=== PATIENT | female | born 1995 | race Caucasian/White ===

== ENCOUNTER 2022-04-19 09:43 | Outpatient (CLI) | payer BC, SELFPAY | END 2022-04-19 09:44 | disposition home or self-care (01) | LOC: AMB 13:15 | PROVIDERS: Visit Provider Internal Medicine | DX: E11.65 Type 2 diabetes mellitus with hyperglycemia (principal); R53.1 Weakness | CPT/HCPCS: A0425; A0427 ==

== ENCOUNTER 2022-04-19 10:09 | Emergency (ER) | payer BC, SELFPAY ==
--- NOTE | 2022-04-19 10:20 | ED.GENADULT ---
HPI - General Adult General Chief complaint: Diabetic Related Problem Stated complaint: diabetic issues Time Seen by Provider: 04/19/22 10:19 History of Present Illness HPI narrative: Pt is a 27 year old diabetic who has been diabetic since she was 11 who presents after developing nausea and weakness upon arrival at the [facility]. Pt was discharged 2 days ago from the hospital in [place] after an episode of DKA. Pt has not missed any of her insulin doses and has been feeling pretty well since discharge. Pt had a finger stick blood sugar of 94 upon arrival this morning but began feeling poorly with nausea on the drive to meet a new PCP at [facility]. Upon arrival, the pt had worsening nausea and had to lie down. Pt had a blood sugar at the scene of 300+ and 911 was called. Pt was transported to the [facility] by EMS. Upon arrival, pt still feels poorly with the above mentioned symptoms and has a blood pressure of approximately 190/110. Pt has no chest pain, shortness of breath, neurological symptoms, fever, dysuria, rash or cough. By her estimation, she has gone into DKA at least 6 times in her lifetime. Related Data Home Medications Medication Instructions Recorded Confirmed duloxetine 20 mg capsule,delayed mg PO 04/19/22 release insulin glargine 100 unit/mL (3 unit subcut 04/19/22 mL) subcutaneous pen (Lantus Solostar U-100 Insulin) lisinopril 40 mg tablet mg 04/19/22 losartan 100 mg tablet mg 04/19/22 magnesium oxide mg 04/19/22 metoclopramide HCl 10 mg tablet mg 04/19/22 ondansetron 4 mg disintegrating mg 04/19/22 tablet potassium chloride 20 mEq meq PO 04/19/22 tablet,extended release(part/cryst) prochlorperazine maleate 10 mg mg 04/19/22 tablet spironolactone 25 mg tablet mg 04/19/22 Allergies Allergy/AdvReac Type Severity Reaction Status Date / Time No Known Drug Allergies Allergy Verified 04/19/22 10:40 Review of Systems Status of ROS: Reports: 10 or more systems reviewed and unremarkable except as noted in History and below [facility] Medical History (Updated 04/19/22 @ 12:14 by Roshan Chavarria MD) Depression Hypertension Type 1 diabetes Exam Narrative: Exam Narrative: EXAM GENERAL: Patient appears comfortable. Underweight and frail. EYES: No scleral icterus. THYROID: no thyroid nodules or thyromegaly. LYMPH: No supraclavicular or cervical lymphadenopathy. SKIN: Visible skin seen during exam normal or with benign process only. EXT: No dependent lower extremity pedal edema. HEART: Regular rate and rhythm with no murmurs, rubs, or gallops. LUNGS: Clear to auscultation bilaterally with no crackles or wheezes. ABD: Soft, non tender, non distended. PSYCH: Good eye contact, speech is not pressured. Const: Vital Signs, click to edit/add: Vital Signs - 24 hr 04/19/22 10:34 Temperature 97.6 F Pulse Rate [Left P ulse Oximeter] 77 Respiratory Rate 16 Blood Pressure [Le ft Upper Arm] 196/120 H Pulse Oximetry 99 Oxygen Delivery Me thod Room Air Course Course Hospital Course: Pt seen and examined. IV hydration begun. Labs collected. Reevaluation(s) Reevaluation #1: Pt is not acidotic. She is actually alkalotic. Pt has a number of interesting findings on laboratory including the alkalosis, elevated hgb, low bicarb that make me concerned for her safety at home with her level of deydration. Discussed case with hospitalist who accepted pt as an admission. Time: 12:05 Vital Signs Vital signs: Initial Vital Signs Temperature 97.6 F 04/19/22 10:34 Temperature Source Temporal Artery Scan 04/19/22 10:34 Pulse Rate 77 04/19/22 10:34 Pulse Rhythm 04/19/22 10:34 Pulse Strength 3+ Normal 04/19/22 10:34 Respiratory Rate 16 04/19/22 10:34 Blood Pressure 196/120 H 04/19/22 10:34 Blood Pressure Mean 145 04/19/22 10:34 Blood Pressure Position Sitting 04/19/22 10:34 Pulse Oximetry 99 04/19/22 10:34 Oxygen Delivery Method 04/19/22 10:34 Vital Signs Temperature 97.6 F 04/19/22 10:34 Pulse Rate 77 04/19/22 10:34 Respiratory Rate 16 04/19/22 10:34 Blood Pressure 196/120 H 04/19/22 10:34 Pulse Oximetry 99 04/19/22 10:34 Oxygen Delivery Method 04/19/22 10:34 Temperature 97.6 F 04/19/22 10:34 Pulse Rate 77 04/19/22 10:34 Respiratory Rate 16 04/19/22 10:34 Blood Pressure 196/120 H 04/19/22 10:34 Pulse Oximetry 99 04/19/22 10:34 Oxygen Delivery Method 04/19/22 10:34 Medical Decision Making MDM Narrative Medical decision making narrative: Pt is a 27 year old Type 1 diabetic who recently was discharged from the hospital in [place] after an episode of DKA. Pt awoke this morning with a blood sugar of 90 but by the time she was at the [facility], her blood sugar was greater than 300 and she felt weak and had to lie down. Pt was brought in to the ED and found to actually be alkalotic with a low bicarb, elevated hgb, elevated glucose and signs of dehydration. I am concerned that if we let her go with limited hydration in the ED she will worsen. Lactate also elevated. Pt will be admitted for hydration and monitoring of blood sugar as well as blood pressure which is 196/120. Differential Diagnosis Differential Diagnosis: DKA, Hyperglycemia, Sepsis, Toxic Ingestion, Lab Data Labs: Lab Results 04/19/22 04/19/22 04/19/22 Range/Units 10:26 11:02 11:02 WBC 10.56 (4.50-11.00) K/uL RBC 5.85 H (4.00-5.20) m/uL Hgb 16.1 H (12.0-16.0) gm/dL Hct 46.7 (33.0-51.0) % MCV 80 (80-100) fL MCH 28 (26-34) pg MCHC 35 (32-36) gm/dL RDW Coeff of Angelica 13.0 (11.5-15.5) % Plt Count 394 (140-440) K/uL Neut % (Auto) 80.3 H (42.0-72.0) % Lymph % (Auto) 13.1 L (20-44) % [place]all % (Auto) 5.8 (0.0-11.0) % Eos % (Auto) 0.3 (0.0-7.0) % Baso % (Auto) 0.4 (0.0-3.0) % Neut # (Auto) 8.50 H (1.7-7.0) K/uL Lymph # (Auto) 1.40 (0.90-2.90) K/uL W[place]all # (Auto) 0.60 (0.00-0.90) K/UL Eos # (Auto) 0.03 (0.00-0.50) K/uL Baso # (Auto) 0.04 (0.00-0.30) K/uL VBG pH (7.32-7.43) VBG pCO2 (40-50) mmHG VBG pO2 (25-47) mmHG VBG HCO3 (21-28) mmol/L Sodium 137 (135-149) mmol/L Potassium 3.4 L (3.6-5.1) mmol/L Chloride 103 (96-114) mmol/L Carbon Dioxide 16 L (20-32) mmol/L BUN 17 (5-24) mg/dL Creatinine 0.7 (0.5-1.5) mg/dL Estimated Creat Clear 82.12 Estimated GFR 121 ml/min Glucose 275 H (60-115) mg/dL Lactate (0.5-1.9) mmol/L Calcium 9.4 (8.4-10.6) mg/dL Total Bilirubin 0.9 (0.1-1.5) mg/dL AST 34 (12-35) U/L ALT 27 (4-35) U/L Alkaline Phosphatase 107 (40-150) U/L Troponin I < 0.01 L (0.01-0.04) ng/mL Total Protein 8.3 (6.0-8.3) g/dL Albumin 4.9 (3.3-5.0) g/dL Amylase 83 (18-89) U/L Urine Color Light yellow (Yellow) Urine Appearance Cloudy A (Clear) Urine pH 7.0 (5.0-8.5) Ur Specific Ackley 1.020 (1.000-1.030) Urine Protein Negative (Negative) Urine Glucose (UA) 2+ A (Negative) Urine Ketones 2+ A (Negative) Urine Blood 3+ A (Negative) Urine Nitrite Negative (Negative) Urine Bilirubin Negative (Negative) Urine Urobilinogen 0.2 (0.2-1.0) Ur Leukocyte Esterase Negative (Negative) Urine RBC >100 A (0-2) Urine WBC 2-5 (0-5) Ur Squamous Epith Cells None (None-Few) Urine Bacteria None (None) 04/19/22 Range/Units 11:02 WBC (4.50-11.00) K/uL RBC (4.00-5.20) m/uL Hgb (12.0-16.0) gm/dL Hct (33.0-51.0) % MCV (80-100) fL MCH (26-34) pg MCHC (32-36) gm/dL RDW Coeff of Angelica (11.5-15.5) % Plt Count (140-440) K/uL Neut % (Auto) (42.0-72.0) % Lymph % (Auto) (20-44) % W[place]all % (Auto) (0.0-11.0) % Eos % (Auto) (0.0-7.0) % Baso % (Auto) (0.0-3.0) % Neut # (Auto) (1.7-7.0) K/uL Lymph # (Auto) (0.90-2.90) K/uL W[place]all # (Auto) (0.00-0.90) K/UL Eos # (Auto) (0.00-0.50) K/uL Baso # (Auto) (0.00-0.30) K/uL VBG pH 7.510 H (7.32-7.43) VBG pCO2 25 L (40-50) mmHG VBG pO2 31.3 (25-47) mmHG VBG HCO3 20 L (21-28) mmol/L Sodium (135-149) mmol/L Potassium (3.6-5.1) mmol/L Chloride (96-114) mmol/L Carbon Dioxide (20-32) mmol/L BUN (5-24) mg/dL Creatinine (0.5-1.5) mg/dL Estimated Creat Clear Estimated GFR ml/min Glucose (60-115) mg/dL Lactate 3.5 H (0.5-1.9) mmol/L Calcium (8.4-10.6) mg/dL Total Bilirubin (0.1-1.5) mg/dL AST (12-35) U/L ALT (4-35) U/L Alkaline Phosphatase (40-150) U/L Troponin I (0.01-0.04) ng/mL Total Protein (6.0-8.3) g/dL Albumin (3.3-5.0) g/dL Amylase (18-89) U/L Urine Color (Yellow) Urine Appearance (Clear) Urine pH (5.0-8.5) Ur Specific Ackley (1.000-1.030) Urine Protein (Negative) Urine Glucose (UA) (Negative) Urine Ketones (Negative) Urine Blood (Negative) Urine Nitrite (Negative) Urine Bilirubin (Negative) Urine Urobilinogen (0.2-1.0) Ur Leukocyte Esterase (Negative) Urine RBC (0-2) Urine WBC (0-5) Ur Squamous Epith Cells (None-Few) Urine Bacteria (None) Discharge Plan Discharge Clinical Impression: Acute dehydration Patient Disposition: Admitted As Inpatient Condition: Stable Activity Level: Other Discharge Diet: Other Prescriptions: No Action duloxetine 20 mg capsule,delayed release(DR/EC) PO Label Comments: TAKE 1 CAPSULE (20 MG) BY MOUTH ONCE DAILY. prochlorperazine maleate 10 mg tablet Label Comments: TAKE 1 TABLET (10 MG) BY MOUTH EVERY 6 HOURS IF NEEDED FOR NAUSEA/VOMITING. spironolactone 25 mg tablet Label Comments: TAKE 1 TABLET (25 MG) BY MOUTH ONCE DAILY. potassium chloride 20 mEq tablet,ER particles/crystals PO Label Comments: DISSOLVE 1 TABLET(20MEQ) IN LIQUID TAKE BY MOUTH ONCE DAILY WITH A MEAL lisinopril 40 mg tablet Label Comments: TAKE 1 TABLET (40 MG TOTAL) BY MOUTH DAILY. ondansetron 4 mg tablet,disintegrating Label Comments: PLACE 1-2 TABLETS ON THE TONGUE EVERY 8 HOURS NEEDED FOR NAUSEA/VOMITTING losartan 100 mg tablet Label Comments: TAKE 1 TABLET (100 MG) BY MOUTH ONCE DAILY. metoclopramide HCl 10 mg tablet Label Comments: TAKE ONE TABLET BY MOUTH EVERY SIX HOURS IF NEEDED FOR NAUSEA/VOMITING magnesium oxide 250 mg magnesium tablet insulin glargine [Lantus Solostar U-100 Insulin] 100 unit/mL (3 mL) insulin pen SUBCUT Label Comments: INJECT 20 UNITS UNDER THE SKIN EVERY MORNING.
[2022-04-19 10:34] VITALS: BP 196/120; PULSE 77; RESP 16; TEMP 36.4; O2SAT 99; BMI 16.8
[2022-04-19 10:51] LABS: Appearance Urine Cloudy (Clear); Bilirubin Urine Negative (Negative); Blood Urine 3+ (Negative); Color Urine Light yellow (Yellow); Glucose Urine 2+ (Negative); Ketones Urine 2+ (Negative); Leukocyte Esterase Urine Negative (Negative); Nitrite Urine Negative (Negative); Protein Urine Negative (Negative); Urobilinogen Urine 0.2 (0.2-1.0)
[2022-04-19 11:08] LABS: RBC Urine >100 (0-2)
[2022-04-19 11:10] LABS: HCO3 VBG 20 mmol/L (21-28); PCO2 VBG 25 mmHG (40-50); PO2 VBG 31.3 mmHG (25-47)
[2022-04-19] MEDS: ONDANSETRON 2 MG/ML inj 4 MG IVP (11:10)
[2022-04-19] MEDS: 0.9 % SODIUM CHLORIDE 500 ML 500 ML IV (11:10)
[2022-04-19 11:11] LABS: Lactate* 3.5 mmol/L (0.5-1.9)
[2022-04-19 11:13] LABS: Basophils Absolute Auto 0.04 K/uL (0.00-0.30); Basophils Percent Auto 0.4 % (0.0-3.0); Eosinophils Absolute Auto 0.03 K/uL (0.00-0.50); Eosinophils Percent Auto 0.3 % (0.0-7.0); Hematocrit 46.7 % (33.0-51.0); Hemoglobin* 16.1 gm/dL (12.0-16.0); Immature Granulocytes Abs Auto 0.01 K/uL (0.00-0.30); Immature Granulocytes Pct Auto 0.1 %; Lymphocytes Percent Auto 13.1 % (20-44); Mean Corpuscular HGB Conc 35 gm/dL (32-36); Mean Corpuscular Hemoglobin 28 pg (26-34); Mean Corpuscular Volume 80 fL (80-100); Monocytes Percent Auto 5.8 % (0.0-11.0); Neutrophils Percent Auto 80.3 % (42.0-72.0); Platelet Count* 394 K/uL (140-440); Red Blood Count 5.85 m/uL (4.00-5.20); White Blood Count* 10.56 K/uL (4.50-11.00)
[2022-04-19 11:15] LABS: Slide Review Reflex No
[2022-04-19 11:29] LABS: Chloride* 103 mmol/L (96-114)
[2022-04-19 11:30] LABS: Albumin* 4.9 g/dL (3.3-5.0); Potassium* 3.4 mmol/L (3.6-5.1); Sodium* 137 mmol/L (135-149)
[2022-04-19 11:32] LABS: Amylase* 83 U/L (18-89); Carbon Dioxide* 16 mmol/L (20-32)
[2022-04-19 11:33] LABS: Alanine Aminotransferase* 27 U/L (4-35); Alkaline Phosphatase* 107 U/L (40-150); Aspartate Amino Transferase* 34 U/L (12-35); Bilirubin Total* 0.9 mg/dL (0.1-1.5); Blood Urea Nitrogen* 17 mg/dL (5-24); Calcium* 9.4 mg/dL (8.4-10.6); Creatinine* 0.7 mg/dL (0.5-1.5); Est. Creatinine Clearance* 82.12; Estimated Glomerular Filt Rate 121 ml/min; Glucose* 275 mg/dL (60-115); Total Protein* 8.3 g/dL (6.0-8.3)
[2022-04-19 11:43] LABS: Troponin I* < 0.01 ng/mL (0.01-0.04)
[2022-04-19 12:23] LABS: PCR FLU A Negative PCR FLU A (Negative); PCR FLU B Negative PCR FLU B (Negative); PCR RSV Negative PCR RSV (Negative); SARS PCR* Negative SARS-CoV-2 (Negative)
[2022-04-19] MEDS: 0.9 % SODIUM CHLORIDE 1000 ml 1,000 ML 125 ML IV (12:29)
[2022-04-19 12:37] LABS: HCO3 VBG 18 mmol/L (21-28); Lactate* 3.1 mmol/L (0.5-1.9); PCO2 VBG 23 mmHG (40-50); PO2 VBG 45.4 mmHG (25-47); pH VBG 7.511 (7.32-7.43)
--- NOTE | 2022-04-19 12:47 | ED.NURSE ---
Pt mom arrived to room, requested RN. Poultry Farmworker came to bedside and mom asked that patient be transfered to [facility]. Asked Dr Chavarria to go speak with mom/patient. Deon returned from their conversation saying that the patient would be signing out AMA. Advised patient to seek immediate medical care for any worsening S/S by calling 911. Pt verbalized understanding and acknowledged.
[2022-04-19 12:57] LABS: Chloride* 104 mmol/L (96-114); Potassium* 3.3 mmol/L (3.6-5.1); Sodium* 136 mmol/L (135-149)
[2022-04-19 13:00] LABS: Blood Urea Nitrogen* 16 mg/dL (5-24); Calcium* 9.1 mg/dL (8.4-10.6); Carbon Dioxide* 15 mmol/L (20-32); Creatinine* 0.6 mg/dL (0.5-1.5); Est. Creatinine Clearance* 95.81; Estimated Glomerular Filt Rate 126 ml/min; Glucose* 294 mg/dL (60-115)
== END 2022-04-19 13:03 | disposition left against medical advice (07) ==
PROVIDERS: Emergency Provider Internal Medicine
DX: E86.0 Dehydration (principal); E10.69 Type 1 diabetes mellitus with other specified complication
CPT/HCPCS: 36415; 80048; 80053; 81003; 81015; 82150; 82803; 82962; 83605; 84484; 85025; 87502; 87634; 87635; 93005; 96374; 99283; 99284; J2405; J7030; J7120

== ENCOUNTER 2022-05-08 08:33 | Outpatient (CLI) | payer BC, SELFPAY ==
--- NOTE | 2022-05-08 08:45 | CRLHL7_ITS ---
For Patients: As a result of the Century Cures Act, medical imaging exams and procedure reports are released immediately into your electronic medical record. You may view this report before your referring provider. If you have questions, please contact your health care provider. Indication: Persistent hypertension, evaluate for renal artery stenosis. Technique: Routine renal artery duplex ultrasound examination, with 2D and spectral analysis, and color doppler imaging. Comparison: None available. Findings: The right kidney measures 9.4 x 3 x 4.9 cm without evidence of hydronephrosis, abnormal cortical echotexture, or cortical thinning. No obvious calcifications or masses. The left kidney measures 9.9 x 3.9 x 4.1 cm without evidence of hydronephrosis, abnormal cortical echotexture, or cortical thinning. No obvious calcifications or masses. Bilateral renal arteries are well-visualized. The velocity in the abdominal aorta was measured at 125 cm/second. The right renal artery was measured at 104 cm/sec, and the left renal artery was measured at 82 cm/sec. This results in the renal artery ratio 0.8 and 0.7, respectively. There are brisk systolic upstrokes with no tardus waveforms. Resistive indices in the upper, mid, and lower pole of the right and left kidney were acquired at 0.5, 0.5 and 0.6 for the right kidney and 0.6, 0.5 and 0.6 for the left kidney. Bilateral renal veins are patent on color and spectral analysis. Impression: 1. No sonographic evidence of a hemodynamically significant renal artery stenosis. 2. No evidence of hydronephrosis. Dictated by Axel Samuels MD @ 05/08/2022 9:35:07 PM (Electronically Signed)
== END 2022-05-08 08:34 | disposition home or self-care (01) ==
LOC: US 08:36
PROVIDERS: Visit Provider Student in an Organized Health Care Education/Training Program
DX: I10 Essential (primary) hypertension (principal)
CPT/HCPCS: 76775; 93975

== ENCOUNTER 2024-09-05 09:13 | Outpatient (CLI) | payer BC, SELFPAY ==
--- OUTSIDE RECORDS SUMMARY | 2024-09-07 16:52 | XMS_ITS | Encounter Summary ---
Author Organization [facility] Address [address] [place] [address] Care Team Providers Care Plater Hot Dip Name Role Phone David Corona M.D. Primary Care Provider Reason for Visit * Reason Onset Date Comments Quality 09/02/2024 D5 Encounter Details Date Type Department Care Team (Late st Contact Info) Description 09/02/2024 Clinical Communication Department of Family Medicine, [facility], in [place] [address] [place] [phone] Yolanda Mobley, R.N. Quality (D5) Social History Tobacco Use Types Packs/Day Years Used Date Smoking Tobacco: Former Cigarettes 0.3 15.2 S tarted: 06/23/2009 Smokeless Tobacco: Never Comments:Vapes Alcohol Use Standard Drinks/Week Comments Not Currently 6 (1 standard drink = 0.6 oz pur e alcohol) [facility] Utilities Answer Date Recorded In the past 12 months has e [employer], gas, oil, or water [employer] threatened to shut off services in your home? No 11/19/2023 Humiliation, Afraid, Rape, and Kick questionnair e Answer Date Recorded Within the last year, have y ou been afraid of your partner or ex-partner? No 04/30/2022 Within the last year, have y ou been humiliated or emotionally abused in other ways by your partner or ex-partner? No Within the last year, have y ou been kicked, hit, slapped, or otherwise physically hurt by your partner or ex-partner? No 04/30/2022 Within the last year, have y ou been raped or forced to have any kind of sexual activity by your partner or ex-partner? No 04/30/2022 Hunger Vital Sign Answer Date Recorded Within the past 12 months, y ou worried that your food would run out before you got the money to buy more. Never true 11/19/19 24 Within the past 12 months, t he food you bought just didn't last and you didn't have money to get more. Never true 11/19/2023 PRAPARE - Transportation Answer Date Re corded In the past 12 months, has l ack of transportation kept you from medical appointments or from getting medications? No 11/09 In the past 12 months, has l ack of transportation kept you from meetings, work, or from getting things needed for daily living? No 11/19/2023 Depression Answer Date Recor ded PHQ-9 Total Score (max 27) 2 11/20 Housing Stability Answer Date Recorded What is your living situation today? I have a [facility] place to live 11/19/2023 Education Answer Date Recorded What is the highest level of school you have completed or the highest degree you have received? 12th grade 11/28/2020 Comments Unknown Sex and Gender Information Value Date Recorded Sex Assigned at Female 07/04/2018 1:38 PM CDT Legal Sex Female 7:44 PM [employer] Gender Identity Nonbinary or Genderqueer 022 10:00 PM CDT Sexual Orientation Something else 04/17/2022 1: 14 PM [employer] TE[employer] documented as of this encounter Miscellaneous Notes * Telephone Encounter - Yolanda Mobley R.N. - 09/02/2024 1:00 PM CDT Left message for patient to return call to clinic. Does the patient need to speak to nursing? no Action needed: Help patient schedule - patient is due for diabetic lab work and appointment. documented in this encounter Plan of Treatment Not on file documented as of this encounter Visit Diagnoses Not on filedocumented in this encounter Additional Health Concerns Assessment Noted Time PHQ-9 Depression Total Score: 2 11/21/19 24 10:44 AM CDT documented as of this encounter Care Teams Plater Hot Dip Relationship Specialty Start Date End Date David Corona M.D. [address] [place] [phone] PCP - General Family Medicine 04/26/22 documented as of this encounter
--- OUTSIDE RECORDS SUMMARY | 2024-09-07 16:52 | XMS_ITS | Clinical Summary ---
Author Organization [facility] Address [address] [place] [address] Care Team Providers Care Baker Pie Name Role Phone Pcp, Pt Declines Primary Care Provider [phone] Source Comments You are receiving this document as you are listed as the primary care provider,follow-up provider, or the patient has been referred to you for consultation.This is in compliance with the Medicare and[facility]centive [facility],which states Providers who transition their patient to another setting of careor provider of care or refers their patient to another provider of care shouldprovide summary care record for each transition of care or referral. [facility] Allergies No known active allergies Medications * This document contains information received from the source organization and may not represent a complete record from that organization. cloNIDine (CATAPRES) 0.2 MG tablet Take 1 Tablet (0.2 mg) by mouth. 11/14/19 24 Active ACCU-CHEK SOFTCLIX lancets 4 times a day. 11/16/19 24 Active amLODIPine (NORVASC) 10 MG tablet Take 1 Tablet (10 mg) by mouth daily. Active Dexcom G7 Sensor continuous blood glucose deviceIndications :Type 1 diabetes mellitus with hyperglycemia (HRC) Change every 10 days 3 Each 6 01/13/20 24 Active insulin pen needle (BD PEN NEEDLE MARLEN U/F) 32G X 4 MMIndications:Typ e 1 diabetes mellitus with hyperglycemia (HRC) Inject 1 Each subcutaneously six times a day. with pen injector device. Each needle is for one time use only 400 Each 01/13/20 Active blood glucose (ACCU-CHEK GUIDE) test stripIndications: Type 1 diabetes mellitus with hyperglycemia (HRC) Use 1 Each to test three times a day. Use as directed. 200 Strip 5 01/13/20 Active acetone urine (KETOSTIX) test stripIndications: Type 1 diabetes mellitus with hyperglycemia (HRC) Use 1 Each to test as needed. Test urine if BG >240 or ill 50 Each 1 01/13/20 24 025 Active LANTUS SOLOSTAR 100 UNIT/ML pen Inject 23 Units subcutaneously daily. 01/14/20 Active cholecalciferol 25 MCG TABS Take 2 Tablets (2,000 Units) by mouth daily. 01/15/20 Active docusate sodium 100 MG Take 1 Capsule (100 mg) by mouth two times a day. 01/14/20 Active glucose 4 gram chewable tablet Chew and swallow 4 Tablets (16 g) by mouth as needed. 01/14/20 Active insulin lispro (HUMALOG; ADMELOG) 100 UNIT/ML injection vial Inject subcutaneously with meals and snacks. 01/14/20 Active insulin lispro (HUMALOG; ADMELOG) 100 UNIT/ML injection vial Inject 1-5 Units subcutaneously three times a day with meals AND 1-4 Units daily at bedtime. 01/14/20 Active losartan-hydrochl orothiazide (HYZAAR) 50-12.5 MG tablet Take 2 Tablets by mouth daily. 60 Tablet 01/15/20 025 Active melatonin 3 MG tablet Take 1 Tablet (3 mg) by mouth daily at bedtime. 01/14/20 Active multivitamin (THERAGRAN) tablet Take 1 Tablet by mouth daily. 01/15/20 Active simethicone (MYLICON) 125 MG chewable tablet Chew and swallow 1 Tablet (125 mg) by mouth 4 times daily as needed. 01/14/20 Active Active Problems Problem Noted Date Diagnosed Date LBBB (left bundle branch block) 12/27/2023 Substance abuse 12/27/2023 Overview (12/27/2023): marijuana Avoidant or restrictive food intake disorder 11/2023 Type 1 diabetes mellitus with hyperglycemia 11/2023 Primary hypertension 11/18/2023 Current moderate episode of major depressive disorder without prior episode 11/18/2023 Prolonged Q-T interval on ECG 11/18/2023 Resolved Problems Problem Noted Date Diagnosed Date Resolved Date Protein-calorie malnutrition, moderate 11/18/2023 12/24/2023 Immunizations Immunization Administration Dates Next Due Influenza IIV4 (Quadrivalent) 0.5mL (82567) 08/2022,03/24/2019 Karl COVID-19 Vaccine 08/23/2020 Pfizer Bivalent 12+ 05/08/2022 Pfizer Monovalent 12+ 06/06/2021 Pfizer Monovalent 12+ Purple Top 03/14/2021 Social History Tobacco Use Types Packs/Day Years Used Date Smoking Tobacco: Never Passive Smoke Exposure: Never Smokeless Tobacco: Never Tobacco Cessation:Counseling Given: Not Answered Alcohol Use Standard Drinks/Week Comments Never 0 (1 standard drink = 0.6 oz pur e alcohol) [facility] Se[employer]less Receiptsities Answer Date Recorded In the past 12 months has e [employer], [employer], oil, or water [employer] threatened to shut off services in your home? No 12/11/2023 Humiliation, Afraid, Rape, and Kick questionnair e Answer Date Recorded Within the last year, have y ou been afraid of your partner or ex-partner? No 12/11/2023 Within the last year, have y ou been humiliated or emotionally abused in other ways by your partner or ex-partner? No Within the last year, have y ou been kicked, hit, slapped, or otherwise physically hurt by your partner or ex-partner? No 12/11/2023 Within the last year, have y ou been raped or forced to have any kind of sexual activity by your partner or ex-partner? No 12/11/2023 Hunger Vital Sign Answer Date Recorded Within the past 12 months, y ou worried that your food would run out before you got the money to buy more. Never true 12/11/19 24 Ran Out of Food in the Last Year Not on file 12/11/2023 PRAPARE - Transportation Answer Date Re corded In the past 12 months, has l ack of transportation kept you from medical appointments or from getting medications? No 04/2023 In the past 12 months, has l ack of transportation kept you from meetings, work, or from getting things needed for daily living? No 12/11/2023 Housing Stability Vital Sign Answer Des e Recorded In the last 12 months, was t here a time when you were not able to pay the mortgage or rent on time? No 12/11/2023 In the past 12 months, how m any times have you moved where you were living? 0 12/11/2023 At any time in the past 12 m [facility], were you homeless or living in a custodial (including now)? 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 Temperature 36.7 C (98.1 F) 01/14/2024 6:00 AM WORK[employer] ANALYST Respiratory Rate - - Oxygen Saturation - - Inhaled Oxygen Concentration - - Weight 51.5 kg (113 lb 8.6 oz) 01/14/2024 6:00 A M [employer] Height 160 cm (5' 2.99) 12/26/2023 5:55 AM CDT Body Mass Index 20.12 12/26/2023 5:55 AM CDT Plan of Treatment Health Maintenance Due Date Last Done Comments Cervical Cancer Screening Due 1995 Diabetes: Eye Exam 1995 Diabetes: Foot Exam 1995 Diabetes: Lipid Panel 1995 Diabetes: Urine Microalbumin 1995 Hep C Screening (Preventive Services) 1995 MTM Targeted 1995 HIV Screening (Preventive Services) 2011 Adult Preventive Visit 2013 HepB Vaccine (1) 2014 Diabetes: HGBA1C 02/20/2024 11/21/2023, 02/2024, 09/11/2023, Additional history exists Diabetes: Creatinine 01/07/2025 01/08/2024, 12/31/2023, 12/24/2023, Additional history exists DTaP/Tdap/Td Vaccine (6 - Tdap) 03/24/2030 03/24/2020, 11/26/2005, 01/12/2000, Additional history exists Zoster/Shingles Vaccine (1 of 2) 2045 Hib Vaccine Completed 02/04/1996, 10/1995, 1995, Additional history exists IPV (Polio) Vaccine Completed 01/12/2000, 1995, 1995, Additional history exists Chlamydia Discontinued 09/26/2012 Pneumococcal Vaccine Completed 05/08/2022, 03/24/19 21 COVID-19 Vaccine Completed 11/21/2023, , 06/06/2021, Additional history exists Influenza Vaccine Completed 11/21/2023, , 03/24/2020, Additional history exists HPV Vaccine Aged Out No longer eligi ble based on patient's age to complete this topic HepA Vaccine Aged Out No longer eligi ble based on patient's age to complete this topic MCV4 Vaccine Aged Out No longer eligi ble based on patient's age to complete this topic Meningococcal B Vaccine Aged Out No l onger eligible based on patient's age to complete this topic Procedures Procedure Name Priority Date/Time Associated Diagnosis Comments COMPREHENSIVE METABOLIC PANEL Routine 01/08/2024 5:34 AM CDT Avoidant or restrictive food intake disorder from Last 3 Months or Most Recently Relevant to Health Maintenance Results * (ABNORMAL) Comp Metabolic Panel (01/08/2024 5:34 AM CDT) Sodium 138 136 - 145 mmol/L 01/08/2024 6:31 AM CDT [facility] Potassium 4.0 3.5 - 5.1 mmol/L 01/08/2024 6:31 AM CDT [facility] Comment:Specimen slightly he molyzed. Hemolysis may affect result. Chloride 106 98 - 109 mmol/L 01/08/2024 6:31 AM CDT [facility] CO2 24 20 - 29 mmol/L 01/08/2024 6:31 AM CDT [facility] Anion Gap 8 6 - 16 mmol/L 01/08/2024 6:31 AM CDT [facility] Calcium 9.1 8.4 - 10.4 mg/dL 01/08/2024 6:31 AM CDT [facility] BUN 29(H) 7 - 26 mg/dL 01/08/2024 6:31 AM CDT [facility] Creatinine 0.69 0.55 - 1.18 mg/dL 01/08/2024 6:31 AM CDT [facility] Alkaline Phosphatase 102 40 - 150 U/L 01/08/2024 6:31 AM CDT [facility] AST (SGOT) 20 10 - 40 U/L 01/08/2024 6:31 AM CDT [facility] ALT (SGPT) 22 <=55 U/L 01/08/2024 6:31 AM CDT [facility] Bilirubin, Total 0.3 0.2 - 1.2 mg/dL 01/08/2024 6:31 AM CDT [facility] Protein, Total 7.4 6.4 - 8.3 g/dL 01/08/2024 6:31 AM CDT [facility] Albumin 3.7 3.5 - 5.0 g/dL 01/08/2024 6:31 AM CDT [facility] Glucose 210(H) 70 - 100 mg/dL 01/08/2024 6:31 AM CDT [facility] Comment:The given reference range is for the fasting state. Non-fasting reference range for glucose is 70 - 180 mg/dL. GFR, Estimated 01/08/2024 6:31 AM CDT [facility] Comment:Since GFR estimation s are influenced by muscle mass, sex and age, in certain instances, two GFR estimations are provided to assist with clinical interpretation. GFR, Female Estimated >60 >60 mL/min/1.7 3m2 01/08/2024 6:31 AM CDT [facility] GFR, Male Estimated >60 >60 mL/min/1.7 3m2 01/08/2024 6:31 AM CDT [facility] Hours Fasting 0.1 8 - 12 Hours 01/08/2024 6:31 AM CDT [facility] Comment:Lab unable to obtain patient's fasting status at time of specimen collection. Blood Venipuncture / Unknown 01/08/2024 5:34 AM CDT 01/08/2024 6:00 AM CDT Narrative [facility] - 01/08/2024 6:31 AM CDT [place] reference intervals have been applied. Please see the Lab Test Catalog for sex-specific reference intervals. us Enma Bowling DO LAB_1 Final Result [facility] [address] [place] [address], [facility] from Last 3 Months or Most Recently Relevant to Health Maintenance [facility] * Full Code (Latest Code Status on File) Date Activated Date Inactivated Comments 12/25/2023 3:29 PM 01/14/2024 4:21 PM * Full Code Date Activated Date Inactivated Comments 12/11/2023 2:55 PM 12/25/2023 1:16 PM Care Teams Baker Pie Relationship Specialty Start Date End Date Pcp, Pt [place] [address] PCP - General 11/14/23
--- OUTSIDE RECORDS SUMMARY | 2024-09-07 16:52 | XMS_ITS | Clinical Summary ---
Author Organization [facility] Address [address] [place] [address] Care Team Providers Care Relationship Associate Name Role Phone David Corona M.D. Primary Care Provider Source Comments Patient records contain information from all sites at [facility]. For routine questions regarding patient records, call [phone] during business hours, M-F 8:00 AM - 5:00 PM Central Time. Record requests for emergency care only can be directed to [phone] at any time.[facility] Allergies No known active allergies Medications * This document contains information received from the source organization and may not represent a complete record from that organization. blood-glucose meter misc Test as directed for diabetes control. 1 each 04/20/19 23 Active blood glucose ctl high,nml,low solution Glucose control solution provides an easy way to ensure accurate blood glucose testing. 1 each 04/20/19 23 Active amLODIPine (NORVASC) 10 mg tablet Take 1 tablet (10 mg total) by mouth daily. 90 tablet 3 05/08/19 23 Active glucagon 1 mg injectionIndicati ons:Diabetes Mellitus Type 1 Hyperglycemia (HCC) Use as directed for low blood sugar. 1 each 06/06/19 23 Active blood sugar diagnostic stripsIndications :Diabetes Mellitus Type 1 Hyperglycemia (HCC) 4 test daily. 400 test 3 09/12/19 24 025 Active hydrOXYzine (VistariL) 25 mg capsule Take 25 mg by mouth 3 (three) times a day. 09/13/19 24 Active Accu-Chek Softclix Lancets lancets 4 (four) times a day. 11/16/19 Active losartan (Cozaar) 50 mg tablet Take 1 tablet (50 mg total) by mouth daily. Taking 50 mg once daily 11/21/19 Active cloNIDine (Catapres) 0.2 mg tablet Take 1 tablet (0.2 mg total) by mouth once for 1 dose. 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 30 mL 02/26/20 025 Active insulin aspart U-100 (NovoLOG FlexPen) 100 unit/mL (3 mL) penIndications:Di abetes Mellitus Type 1 Hyperglycemia (HCC),Shelter Use Of Insulin Active (HCC),Diabetes Mellitus Type 1 With Ketoacidosis Without Coma (HCC) Inject 5-8 Units under the skin 3 (three) times a day with meals. B: 1u/10g; snacks:1u/20g; L/S:1u/15g. PLUS CF 1 unit/60 mg/dL starting at 160 mg/dL. MAX TDD: 40 units. 30 mL 02/26/20 025 Active pen needle, diabetic (BD Ultra-Fine Mini Pen Needle) 31 gauge x 3/16 needleIndications :Diabetes Mellitus Type 1 Hyperglycemia (HCC) 5 each (5 Injection total) by abdominal subcutaneous route daily. 500 each 02/26/20 24 025 Active insulin pump cart,auto,BT,G6/7 (Omnipod 5 G6-G7 Pods, Gen 5,) cartridge Inject 1 each under the skin every third day. 30 each 3 03/23/19 25 Active insulin aspart U-100 (NovoLOG U-100 Insulin aspart) 100 unit/mL vial For insulin pump usage up to 70 units daily. 100 mL 11 03/23/19 25 Active Active Problems Problem Noted Date Diagnosed Date Hypertensive Chronic Kidney Disease With Stage 1 Through Stage 4 Chronic Kidney Disease, Or Unspecified Chronic Kidney Disease 11/21/2023 Avoidant Restrictive Food Intake Disorder Adult 04/21/2022 Other Secondary Hypertension 04/21/2022 Malnutrition Moderate Protein-Calorie 04/19/2022 Shelter Use Of Insulin Active 08/24/2021 Underweight 08/24/2021 Depression Major Recurrent Moderate 08/08/2021 Anxiety Generalized Disorder 08/08/2021 Malnutrition Severe Protein-Calorie 08/03/2021 Acidosis Unspecified 08/02/2021 Diabetes Mellitus Type 1 Hyperglycemia 2 Proteinuria 03/26/2021 Acidosis Unspecified 02/20/2021 Hypophosphatemia 11/25/2020 Prolonged QT Interval 11/25/2020 Cannabis Mild Use Disorder (Abuse) Uncomplicated 11/25/2020 Microalbuminuria 03/24/2020 Overview (03/24/2020): March 24, 2020 Albumin/creatinine 29 Alcohol Mild Use Disorder (Abuse) In Remission 0 05/10/2019 Patient's Other Noncomplianc e With Medication Regimen Due To Financial Hardship 05/10/2019 Resolved Problems Problem Noted Date Diagnosed Date Resolved Date Ketoacidosis 04/20/2022 04/21/2022 Tachycardia Sinus 11/25/2020 11/25/2020 Failure Renal Acute (Acute Kidney Injury) 11/25/2020 11/25/2020 Encephalopathy Toxic Metabolic 11/25/2020 11/25/2020 Nausea And Vomiting 11/25/2020 11/26/19 21 Diabetes Mellitus Type 1 Wit h Ketoacidosis Without Coma 11/24/2020 04/21/2022 Neutrophilia 11/24/2020 11/25/2020 Hypertensive Urgency 12/07/2013 023 Encounters Date Type Department Care Team Description 09/02/2024 Clinical Communication Department of Family Medicine, [facility], in [place] [address] [place] [address] Yolanda Mobley R.N. Quality (D5) from Last 3 Months Immunizations Immunization Administration Dates Next Due DTP / Hib 1995,1995 DTaP (Infanrix, Tripedia) 01/12/2000 HepB, Unspecified 1995,1995,02/19/19 95 Hib (PRP-T) (ACTHIB, HIBERIX) 02/04/1996, 996 IPV 01/12/2000 Influenza, Seasonal, Injectable 02/10/2008,01/07 Influenza, Unspecified 03/24/2019,01/28/2014 MMR 01/12/2000,01/30/1996 PCV20 05/08/2022 PPSV23 03/24/2020 Polio, Unspecified 1995,1995, 996 SARS-COV-2 (COVID-19) - MODE RNA (12 YEARS AND OLDER) Fall Seasonal 11/21/2023 SARS-COV-2 (COVID-19) - PFIZ ER (Discontinued)(12 years or older) 03/14/2021 SARS-COV-2 (COVID-19) - PFIZ ER BIVALENT TS(Discontinued)(12 YEARS OR OLDER) 05/08/2022 SARS-COV-2 (COVID-19) - PFIZ ER TS(Discontinued)(12 years or older) 06/06/2021 Td Preservative Free (TENIVAC, DECAVAC) 03/24/19 21 Tdap 11/26/2005 influenza trivalent vaccine (6 months and older)(PF) 11/21/2023 influenza vaccine quad (FLUZ ONE/FLUARIX) (6 months and older)(PF) 04/16/2022,03/24/2020,03/24/2019 Family History Medical History Relation Name Comments Diabetes type I Brother Ronnell Diabetes type I Sister Taniya Relation Name Status Comments Brother Ronnell Alive Father Alive Mother Alive Sister Taniya Alive Social History Tobacco Use Types Packs/Day Years Used Date Smoking Tobacco: Former Cigarettes 0.3 15.2 S tarted: 06/23/2009 Smokeless Tobacco: Never Tobacco Cessation:Counseling Given: Not Answered Comments:Vapes Alcohol Use Standard Drinks/Week Comments Not Currently 6 (1 standard drink = 0.6 oz pur e alcohol) [facility] Utilities Answer Date Recorded In the past 12 months has th e [employer] oil, or water [employer] threatened to shut off services in your [...] money to buy more. Never true 11/19/19 Within the past 12 months, t he [...] your living situation today? I have a [facility] place to live 11/19/2023 Education Answer Date Recorded What is the highest level of school you have completed or the highest degree you have received? 12th grade 11/28/2020 Comments Unknown Sex and Gender Information Value Date Recorded Sex Assigned at Female 07/04/2018 1:38 PM CDT Legal Sex Female 7:44 PM ANIMATION PRODUCER Gender Identity Nonbinary or Genderqueer 022 10:00 PM CDT Sexual Orientation Something else 04/17/2022 1: 14 PM ANIMATION PRODUCER Last Filed Vital Signs Vital Sign Reading Time Taken Comments Blood Pressure 122/70 02/26/2024 10:17 AM ANIMATION PRODUCER Pulse 84 02/26/2024 10:17 AM ANIMATION PRODUCER Temperature 35.9 C (96.7 F) 11/21/2023 10:41 AM CDT Respiratory Rate 16 11/21/2023 10:4 1 AM CDT Oxygen Saturation 99% 04/22/2022 11: 43 AM ANIMATION PRODUCER Inhaled Oxygen Concentration - - Weight 51.6 kg (113 lb 12.1 oz) 024 10:17 AM ANIMATION PRODUCER Height 161.5 cm (5' 3.58) 11/21/2023 1 0:41 AM CDT Body Mass Index 19.78 11/21/2023 10:41 AM CDT Plan of Treatment Health Maintenance Due Date Last Done Comments HIV Screening 1995 Hepatitis C Screening 1995 Hepatitis A Vaccines (1 of 2 - Risk 2-dose series) 2014 Diabetic Office Visit with Foot Exam 05/08/2023 05/08/2022, 03/31/2020, 03/31/2020, Additional history exists Tobacco Cessation counseling 05/17/2023 05/16/2022 Urine Albumin 10/03/2023 10/02/2022, 06/0 09/2021, 03/24/2020, Additional history exists Dilated Eye Exam 10/16/2023 10/15/2022, 01/28/2014 Hemoglobin A1C 02/20/2024 11/21/2023, 07/0 05/2023, 02/02/2023, Additional history exists Depression Monitoring (PHQ-9 for quality tracking) 03/11/2024 Depression Monitoring (PHQ-9) 03/22/2024 11/21/2023 Creatinine Level (Kidney Function Test) 11/09/2024 11/10/2023, 11/09/2023, 11/08/2023, Additional history exists Sodium Level 11/09/2024 11/10/2023, 10/11, 11/08/2023, Additional history exists Potassium Level 11/13/2024 11/14/2023, 0906/2023, 11/12/2023, Additional history exists Lipid (Cholesterol) Screening 11/20/2024 11/21/2023, 11/12/2023, 10/02/2022, Additional history exists Visit: Chronic Disease, age 18+ 11/20/2024 11/21/2023, 11/21/2023 Office Visit for Blood Pressure Check / Re-check 02/25/2025 02/26/2024 Cervical/Vaginal Cancer Screening 11/20/2026 11/21/2023 DTaP,Tdap,and Td Vaccines (6 - Td or Tdap) 03/24/2030 03/24/2020, 11/26/2005, 01/12/2000, Additional history exists Hepatitis B Vaccines Completed 1995, 1995, 1995 IPV Vaccines Completed 01/12/2000, 10/1995, 1995, Additional history exists Chlamydia and Gonorrhea Screening Discontinued 01/28/2014 Pneumococcal vaccine (0-49 years) Completed 05/08/2022, 03/24/2020 COVID-19 Vaccine Completed 11/21/2023, , 06/06/2021, Additional history exists Influenza Vaccine Completed 11/21/2023, , 03/24/2020, Additional history exists HPV Vaccines Aged Out No longer eligi ble based on patient's age to complete this topic Procedures Procedure Name Priority Date/Time Associated Diagnosis Comments HEMOGLOBIN A1C, B Routine 11/21/2023 12: 05 PM CDT Diabetes Mellitus Type 1 (HCC) LIPID PANEL, S Routine 11/21/2023 12:05 PM CDT Diabetes Mellitus Type 1 Hyperglycemia (HCC) THINPREP SCREEN HPV REFLEX Routine 11/21/2023 11:12 AM CDT Well Adult Examination Normal ALBUMIN, RANDOM, U Routine 10/02/2022 11 :22 AM CDT Diabetes Mellitus Type 1 (HCC) BASIC METABOLIC PANEL, S/P Routine 04/22/2022 7:03 AM ANIMATION PRODUCER C TRACH AMP RNA Routine 01/28/2014 10:30 AM ANIMATION PRODUCER from Last 3 Months or Most Recently Relevant to Health Maintenance Results * Lipid Panel (11/21/2023 12:05 PM CDT) Triglycerides 51 mg/dL 11/21/2023 6:04 PM CDT OWAT Comment: ----REFERENCE VALUE---- Normal: <150 mg/dL Borderline High: 150-199 mg/dL High: 200-499 mg/dL Very High: > or =500 mg/dL Cholesterol, Total 165 mg/dL 2023 6:04 PM CDT OWAT Comment: ----REFERENCE VALUE---- Desirable: < 200 mg/dL Borderline High: 200 - 239 mg/dL High: > or = 240 mg/dL Cholesterol, LDL, Calculated 88 mg/dL 11/21/2023 6:04 PM CDT OWAT Comment: ----REFERENCE VALUE---- Desirable: <100 mg/dL Above Desirable: 100-129 mg/dL Borderline High: 130-159 mg/dL High: 160-189 mg/dL Very High: >=190 mg/dL ----ADDITIONAL INFORMATION---- LDL cholesterol calculated using the Nielson/NIH equation. Cholesterol, HDL 66 >=50 mg/dL 11/21/19 6:04 PM CDT OWAT Cholesterol, Non-HDL, Calculated 99 mg/dL 11/21/2023 6:04 PM CDT OWAT Comment: ----REFERENCE VALUE---- Desirable: <130 mg/dL Above Desirable: 130-159 mg/dL Borderline High: 160-189 mg/dL High: 190-219 mg/dL Very High: > or =220 mg/dL Fasting (8 HR or more) No 11/21/2023 12:05 PM CDT OWAT Blood (Blood, Venous) 11/21/2023 12:05 PM CDT 11/21/2023 5:33 PM CDT us David Corona M.D. LAB BLOOD ADD-ON Final Resul t [facility] [address] [place] [address], [facility] [place] [address] [place] [address] * (ABNORMAL) Hemoglobin A1c (11/21/2023 12:05 PM CDT) Hemoglobin A1c, B 11.6(H) 4.2 - 5.6 % 11/21/2023 2:22 PM CDT OWAT Comment: Hemoglobin A1c values greater than or equal to 6.5 percent are diagnostic for diabetes mellitus. Diagnosis should be confirmed by repeat testing. In diabetic patients, HbA1c goals should be discussed with healthcare provider. Blood (Blood, Venous) 11/21/2023 12:05 PM CDT 11/21/2023 1:02 PM CDT us David Corona M.D. LAB BLOOD ADD-ON Final Resul t [facility] [address] [place] [address], [facility] OWAT [facility] [place] [address] [place] [address] * ThinPrep Screen HPV Reflex (11/21/2023 11:12 AM CDT) 11/26/2023 11:12 AM CDT [facility] Report electronically signed by CAT Rob(ASCP) I verify that I have examined all relevant slides/materials for the specimen(s) and rendered or confirmed the diagnosis. 11/26/2023 11:12 AM CDT [facility] Gross Description Received specimen in a ThinPrep vial. 11/26/2023 11:12 AM CDT [facility] Pap Test Source Cervical/Endocervi arnold 11/26/2023 11:12 AM CDT [facility] Hormone Therapy/Contracep tives None/Not known 11/26/2023 11:12 AM CDT [facility] Interpretation Cervical/Endocervi arnold (ThinPrep): Satisfactory for Evaluation Endocervical/trans formation zone components absent Negative for Intraepithelial Lesion or Malignancy 11/26/2023 11:12 AM CDT [facility] Thin Prep Vial (Cervix/Endocerv ix) 11/21/2023 11:12 AM CDT 11/22/2023 7:17 AM CDT us David Corona M.D. LAB PAP PATHDX ORDERABLES Fi nal Result Performing Organization Address [facility] Co de Phone Number [facility] [address] [place] [address], [place] [facility] [address] [facility] [address] [place] [phone] * (ABNORMAL) Albumin, Random, Urine (10/02/2022 11:22 AM CDT) Microalbumin 87.0 mg/L 10/02/2022 2:35 PM CDT OWAT Creatinine 139 mg/dL 10/02/2022 2:35 PM CDT OW[facility] Albumin/Creatinin e Ratio 63(H) <25 mg/g 10/02/2022 2:35 PM CDT OW[facility] Urine (Urine, Midstream) 10/02/2022 11:22 AM CDT 10/02/2022 1:47 PM CDT us David Corona M.D. LAB URINE ORDERABLES Final R esult Performing Organization Address [facility] Co de Phone Number [facility] [address] [place] [address], [place] [facility] [place] [address] [place] [address] * (ABNORMAL) Basic Metabolic Panel (04/22/2022 7:03 AM ANIMATION PRODUCER) Potassium, S 4.6 3.6 - 5.2 mmol/L 04/22/2022 8:11 AM ANIMATION PRODUCER DTL Sodium, S 137 135 - 145 mmol/L 04/22/2022 8:11 AM ANIMATION PRODUCER DTL Chloride, S 102 98 - 107 mmol/L 04/22/2022 8:11 AM ANIMATION PRODUCER DTL Bicarbonate, S 26 22 - 29 mmol/L 04/22/2022 8:11 AM ANIMATION PRODUCER DTL Anion Gap 9 7 - 15 04/22/2022 8:11 AM ANIMATION PRODUCER DTL BUN (Blood Urea Nitrogen), S 13 6 - 21 mg/dL 04/22/2022 8:11 AM ANIMATION PRODUCER DTL Creatinine 0.70 0.59 - 1.04 mg/dL 04/22/2022 8:11 AM ANIMATION PRODUCER DTL Estimated GFR (eGFR) >90 >=60 mL/min/BSA 04/22/2022 8:11 AM ANIMATION PRODUCER DTL Comment: Estimated GFR calculated using the 2020 CKD_EPI creatinine equation. Calcium, Total, S 8.8 8.6 - 10.0 mg/dL 04/22/2022 8:11 AM ANIMATION PRODUCER DTL Glucose, S 308(H) 70 - 140 mg/dL 04/22/2022 8:11 AM ANIMATION PRODUCER DTL Blood (Blood, Venous) 04/22/2022 7:03 AM ANIMATION PRODUCER 04/22/2022 7:44 AM ANIMATION PRODUCER Amanda Dolan M.D. LAB BLOOD ADD-ON Final Result [facility] [address] [place] [address], [facility] [address] [place] [address] * HX-C trach Amp RNA (01/28/2014 10:30 AM ANIMATION PRODUCER) Chlamydia trachomatis amplified RNA Negative POWERCHART 01/28/2014 10:3 0 AM ANIMATION PRODUCER Aura Mohr M.D. LAB HISTORICAL OR DERS Final Result POWERCHART from Last 3 Months or Most Recently Relevant to Health Maintenance Insurance [facility] [place] [address] Advance Directives For more information, please contact: [phone] * Full Code (Latest Code Status on File) Date Activated Date Inactivated Comments 04/19/2022 8:01 PM 04/22/2022 2:29 PM Question Answer Comments Full Code: Discussed * Full Code Date Activated Date Inactivated Comments 11/24/2020 5:42 AM 11/26/2020 3:52 PM Question Answer Comments Full Code: Discussed Care Teams Relationship Associate Relationship Specialty Start Date End Date David Corona M.D. [address] [place] [address] [place] [address] PCP - General Family Medicine 04/26/22
--- OUTSIDE RECORDS SUMMARY | 2024-09-07 16:52 | XMS_ITS | Patient Health Record ---
Author Organization [facility] Address [facility] [address] Care Team Providers Care Detailer Name Role Phone Cirilo Wade MD Primary Care Provider Graciela vailable Reason For Referral No Information Plan Of Treatment No Information Insurance Providers Payer Name Payer Address Payer Phone Subscriber Number Group Number Insured Name Patient Relationship to Insured Coverage Start Date Coverage End Date [facility] [address] [address] [place] [address] [id number] Jef Silva Natural Child - Insured has Financial Responsibility 1
--- OUTSIDE RECORDS SUMMARY | 2024-09-07 16:52 | XMS_ITS | Clinical Summary ---
Author Organization [employer] Address [address] [place] [address] Care Team Providers Care Pre Certification Specialist Name Role Phone Communications, [facility] Unavailabl e Mansoor Redmond Unavailable [phone] Eliza Hawk Unavailable [phone] David Corona [facility] [place] Primary Care Provider Allergies No known active allergies Medications Glucagon Emergency Kit, human, 1 mg injection Use as directed for low blood sugar 08/25/19 22 Active Blood Pressure Monitor KitIndications:Hy pertension Frequency of testing: Daily 1 Each 09/13/19 24 Active pen needle 31 gauge x 3/16 (disposable insulin pen needle)Indication s:Type 1 diabetes mellitus with ketoacidosis without coma (HC) Remove the 2 covers on the pen needle before administering medication dose. 150 Each 1 11/14/19 24 Active lancetsIndication s:Type 1 diabetes mellitus with ketoacidosis without coma (HC) Dispense item covered by pt ins. E10.65 IDDM type I, uncontrolled - Test 4 times/day. Reason: Hypoglycemia 150 Each 1 11/14/19 24 Active blood sugar diagnostic stripIndications: Type 1 diabetes mellitus with ketoacidosis without coma (HC) Dispense item covered by pt ins. E10.65 IDDM type I, uncontrolled - Test 4 times/day. Reason: Hypoglycemia 150 Each 1 4 9:06 AM CDT 11/14/19 24 Active losartan (COZAAR) 100 mg tabletIndications :Type 1 diabetes mellitus with ketoacidosis without coma (HC),Hypertension Take 1 Tablet (100 mg) by mouth once daily. Do not start before November 15, 2023. 30 Tablet 4 9:06 AM CDT 11/15/19 Active escitalopram oxalate (LEXAPRO) 10 mg tabletIndications :Situational stress,Generalize d anxiety disorder,Moderate episode of recurrent major depressive disorder (HC) Take 1 Tablet (10 mg) by mouth once daily. 30 Tablet 4 9:06 AM CDT 11/14/19 24 Active cloNIDine HCL (CATAPRES) 0.2 mg tabletIndications :Generalized anxiety disorder,Hyperten sirena Take 1 Tablet (0.2 mg) by mouth two times daily. 60 Tablet 4 9:06 AM CDT 11/14/19 Active amLODIPine (NORVASC) 10 mg tabletIndications :Hypertension Take 1 Tablet (10 mg) by mouth once daily. Do not start before November 15, 2023. 30 Tablet 4 9:06 AM CDT 11/15/19 Active Lantus Solostar U-100 Insulin 100 unit/mL (3 mL) penIndications:Ty pe 1 diabetes mellitus with ketoacidosis without coma (HC) Inject 20 units subcutaneous once daily. Product desired: LANTUS SOLOSTAR or insurance preference. 15 mL 1 4 9:06 AM CDT 11/14/19 Active insulin aspart, U-100, (NOVOLOG FLEXPEN) 100 unit/mL (3 mL) penIndications:Di abetic ketoacidosis without coma associated with type 1 diabetes mellitus (HC),Type 1 diabetes mellitus with hyperglycemia (HC) Inject 0-7 units subcutaneous three times daily with meals. 1:15 insulin to carb ratio plus a sliding scale. Takes 1 unit for every 60 mg/dL that their blood sugar is above 160. Max 30 units TDD. 15 mL 1 4 9:06 AM CDT 11/14/19 24 Active Active Problems Problem Noted Date Diagnosed Date Anorexia 09/12/2023 Hypophosphatemia 07/04/2023 Nausea & vomiting 02/02/2023 Respiratory alkalosis 02/02/2023 Nonadherence with diabetes treatment 11/02/2022 Diabetic ketoacidosis withou t coma associated with type 1 diabetes mellitus 11/01/2022 Cannabinoid hyperemesis syndrome 07/28/2022 Hypertension 07/27/2022 Other secondary hypertension 04/21/2022 Moderate protein-calorie mal nutrition (weight for age 60-74% of standard) 04/19/2022 Leucocytosis 04/15/2022 Intractable nausea and vomiting 04/14/2022 Cannabis use disorder, moderate, dependence 09/2021 Type 1 diabetes mellitus with hyperglycemia 09/2021 Assessment & Plan (04/19/2022 9:17 AM REGISTER IN CHANCERY): She has had episodes of diabetic ketoacidosis with electrolyte abnormalities. LBBB (left bundle branch blo ck)--intermittent (rate aberrancy) 10/20/2021 Eating disorder 10/20/2021 Generalized anxiety disorder 08/08/2021 Moderate episode of recurrent major depressive d isorder 08/08/2021 Severe malnutrition 08/03/2021 Prolonged QT interval 11/25/2020 Microalbuminuria 03/24/2020 Overview (03/26/2021): March 24, 2020 Albumin/creatinine 29 Adjustment disorder with mix ed disturbance of emotions and conduct 07/02/2006 Overview (07/02/2006): rule out mild PDD, behavior disorder nos or anxiety Nonorganic enuresis 06/12/2006 Resolved Problems Problem Noted Date Diagnosed Date Resolved Date Hyperglycemia 04/14/2022 07/27/2022 Electrolyte abnormality 04/14/202207/09 Drug-induced tardive dystonia 11/19/2021 11/19/2021 Noncompliance with medication regimen 05/10/2019 11/07/2023 Dysfunctional alcohol use 05/10/2019 Nondependent alcohol abuse, in remission 05/10/2019 11/07/2023 DON (acute kidney injury) Immunizations Immunization Administration Dates Next Due DTP-HIB 1995,1995 DTaP 01/12/2000 HIB PRP-T (ActHIB,Hiberix) 02/04/1996,1995 Hepatitis B (Peds) 1995,1995, 995 Inactivated Polio Vaccine 01/12/2000 Influenza, IIV4 04/16/2022,03/24/2019 MMR 01/12/2000,01/30/1996 Oral Polio Vaccine 1995,1995, 996 Tdap 11/26/2005 Family History Medical History Relation Name Comments Other Mother adopted Relation Name Status Comments Father Alive Mother Alive Social History Tobacco Use Types Packs/Day Years Used Date Smoking Tobacco: Former Smokeless Tobacco: Never Tobacco Cessation:Counseling Given: Not Answered Comments:Vape Alcohol Use Standard Drinks/Week Comments Not Currently 0 (1 standard drink = 0.6 oz pur e alcohol) trying to quit Social Connections Answer Date Recorded Do you often feel lonely or isolated from those around you? 4 11/07/2023 Financial Resource Strain Answer Date R ecorded Difficulty of Paying Living Expenses 3 11/07/2023 Difficulty of Paying Living Expenses Not on file 11/07/2023 Food Insecurity Answer Date Recorded Do you worry your food will run out before you are able to buy more? 1 11/07/2023 Transportation Needs Answer Date Record ed Does lack of transportation keep you from medica l appointments? 1 11/07/2023 Does lack of transportation keep you from work, meetings or getting things that you need? 1 11/07/2023 Housing Stability Answer Date Recorded What is your housing situation today? 1 11/07/2023 Interpersonal Safety Answer Date Record ed Are you being hit, kicked, p ushed or yelled at (see row info)? No 11/21/2023 Interpersonal Safety Abuse 12 - 18 Not on file 11/21/2023 Interpersonal Safety Ambulatory Vulnerability No t on file 11/21/2023 Utilities Answer Date Recorded Do you have trouble paying f or utilities (for example, heat, electricity, water, phone)? 1 11/07/2023 Comments No Sex and Gender Information Value Date Recorded Sex Assigned at Not on file Legal Sex Female 5:27 AM REGISTER IN CHANCERY Gender Identity Not on file Sexual Orientation Not on file Obstetrics History Last Filed Vital Signs Vital Sign Reading Time Taken Comments Blood Pressure 136/83 11/21/2023 6:08 PM CDT Pulse 75 11/21/2023 6:08 PM CDT Temperature 36.9 C (98.4 F) 11/21/2023 6:08 PM CDT Respiratory Rate 16 11/21/2023 6:08 PM CDT Oxygen Saturation 100% 11/21/2023 6:08 PM CDT Inhaled Oxygen Concentration - - Weight 44.5 kg (98 lb 1.7 oz) 11/21/2023 6:08 PM CDT Height 160 cm (5' 3) 11/21/2023 6:08 PM CDT Body Mass Index 17.38 11/21/2023 6:08 PM CDT Plan of Treatment Health Maintenance Due Date Last Done Comments Depression screening for age 12+ 2007 HIV for age 15-65 2010 BMI (ht and wt on same day) for age 18+ 2013 Hepatitis C screening for age 18-79 2013 Pneumococcal series for age 6-49 (1 of 2 - PCV) 2014 Tetanus booster 11/27/2015 11/26/2005 Pap test for age 21-65 01/18/2016 Influenza Vaccine (Season Ended) 2024 04/16/19, 03/24/2019 Hepatitis B series for 19+ Completed 09/01, 1995, 1995 Tdap Completed 11/26/2005 COVID-19 vaccine series Completed 11/21/19, 05/08/2022, 08/23/2020 Insurance MEDICAID Advance Directives * Full Code (Latest Code Status on File) Date Activated Date Inactivated Comments 11/07/2023 2:04 AM 11/14/2023 7:38 PM Question Answer Comments Code Status Discussion: Reviewed Preferences * Full Code Date Activated Date Inactivated Comments 09/11/2023 5:43 PM 09/13/2023 5:05 PM Question Answer Comments Code Status Discussion: Reviewed Preferences * Full Code Date Activated Date Inactivated Comments 07/11/2023 9:39 PM 07/13/2023 3:35 PM Question Answer Comments Code Status Discussion: Reviewed Preferences * Full Code Date Activated Date Inactivated Comments 07/04/2023 5:44 PM 07/05/2023 6:00 PM Question Answer Comments Code Status Discussion: Reviewed Preferences * Full Code Date Activated Date Inactivated Comments 02/02/2023 2:37 PM 02/04/2023 5:54 PM Question Answer Comments Code Status Discussion: Reviewed Preferences Care Teams Pre Certification Specialist Relationship Specialty Start Date End Date David Corona MBBS [address] [place] [address] PCP - General Family Practice 11/02/22 Communications, [facility] [address] [place] [phone] 05/09/19 Mansoor Redmond LGSW [address] [place] [address] Policy Value Calculator 03/24/19 Eliza Hawk PA [address] [place] [address] Physician Senior Scientist 10/20/21
--- OUTSIDE RECORDS SUMMARY | 2024-09-08 01:41 | XMS_ITS | Encounter Summary ---
Author Organization [facility] Address [address] [place] [address] Care Team Providers Care Poleyard Supervisor Name Role Phone David Corona M.D. Primary Care Provider Reason for Visit * Reason Onset Date Comments Quality 09/02/2024 D5 Encounter Details Date Type Department Care Team (Late st Contact Info) Description 09/02/2024 Clinical Communication Department of Family Medicine, [facility], in [place], [place] [address] [place] [address] Yolanda Mobley, R.N. Quality (D5) Social History Tobacco Use Types Packs/Day Years Used Date Smoking Tobacco: Former Cigarettes 0.3 15.2 S tarted: 06/23/2009 Smokeless Tobacco: Never Comments:Vapes Alcohol Use Standard Drinks/Week Comments Not Currently 6 (1 standard drink = 0.6 oz pur e alcohol) [facility] Utilities Answer Date Recorded In the past 12 months has e [employer], gas, oil, or water [employer] threatened to shut off services in your [...] your living situation today? I have a [facility] place to live 11/19/2023 Education Answer Date Recorded What is the highest level of school you have completed or the highest degree you have received? 12th grade 11/28/2020 Comments Unknown Sex and Gender Information Value Date Recorded Sex Assigned at Female 07/04/2018 1:38 PM CDT Legal Sex Female 7:44 PM CIVIL DRAFTING TECHNICIAN Gender Identity Nonbinary or Genderqueer 022 10:00 PM CDT Sexual Orientation Something else 04/17/2022 1: 14 PM CIVIL DRAFTING TECHNICIAN documented as of this encounter Miscellaneous Notes [...] documented as of this encounter Care Teams Poleyard Supervisor Relationship Specialty Start Date End Date aDvid Corona M.D. [address] [place] [phone] PCP - General Family Medicine 04/26/22 documented as of this encounter
--- OUTSIDE RECORDS SUMMARY | 2024-09-08 01:41 | XMS_ITS | Clinical Summary ---
Author Organization [employer] Address [address] [place] [address] Care Team Providers Care Cheese Supervisor Name Role Phone Pcp, Pt Declines Primary Care Provider [phone] Source Comments You are receiving this document as you are listed as the primary care provider,follow-up provider, or the patient has been referred to you for consultation.This is in compliance with the Medicare andBar[facility] Cent[facility] EHR Incentive Program,which states Providers who transition their patient to another setting of careor provider of care or refers their patient to another provider of care shouldprovide summary care record for each transition of care or referral. [employer] Allergies No known active allergies Medications * [...] Dates Next Due Influenza IIV4 (Quadrivalent) 0.5mL (96089) 08/2022,03/24/2019 Karl COVID-19 Vaccine 08/23/2020 Pfizer Bivalent 12+ 05/08/2022 Pfizer Monovalent 12+ 06/06/2021 Pfizer Monovalent 12+ Purple Top 03/14/2021 Social History Tobacco Use Types Packs/Day Years Used Date Smoking Tobacco: Never Passive Smoke Exposure: Never Smokeless Tobacco: Never Tobacco Cessation:Counseling Given: Not Answered Alcohol Use Standard Drinks/Week Comments Never 0 (1 standard drink = 0.6 oz pur e alcohol) [facility] Hullities Answer Date Recorded In the past 12 months has e [employer], [employer], oil, or water [employer] threatened to shut off services in your [...] any time in the past 12 m [facility], were you homeless or living in a residential (including now)? No 12/11/2023 Comments No Sex and Gender Information Value Date Recorded Sex Assigned at Female 11/29/2023 3:50 PM CDT Legal Sex Female 5:45 AM CDT Gender Identity Non-binary 11/29/2023 3:50 PM CDT Sexual Orientation Not on file Last Filed Vital Signs Vital Sign Reading Time Taken Comments Blood Pressure 144/112 01/14/2024 6:04 AM FISH FARM MANAGER Pulse 112 01/14/2024 6:04 AM FISH FARM MANAGER Temperature 36.7 C (98.1 F) 01/14/2024 6:00 AM FISH FARM MANAGER Respiratory Rate - - Oxygen Saturation - - Inhaled Oxygen Concentration - - Weight 51.5 kg (113 lb 8.6 oz) 01/14/2024 6:00 A M FISH FARM MANAGER Height 160 cm (5' 2.99) 12/26/2023 5:55 [...] - 145 mmol/L 01/08/2024 6:31 AM CDT [facility] Potassium 4.0 3.5 - 5.1 mmol/L 01/08/2024 6:31 AM CDT [facility] Comment:Specimen slightly he molyzed. Hemolysis may affect result. Chloride 106 98 - 109 mmol/L 01/08/2024 6:31 AM CDT [facility] CO2 24 20 - 29 mmol/L 01/08/2024 6:31 AM CDT [facility] Anion Gap 8 6 - 16 mmol/L 01/08/2024 6:31 AM CDT [facility] Calcium 9.1 8.4 - 10.4 mg/dL 01/08/2024 6:31 AM CDT [facility] BUN 29(H) 7 - 26 mg/dL 01/08/2024 6:31 AM CDT [facility] Creatinine 0.69 0.55 - 1.18 mg/dL 01/08/2024 6:31 AM CDT [facility] Alkaline Phosphatase 102 40 - 150 U/L 01/08/2024 6:31 AM CDT [facility] AST (SGOT) 20 10 - 40 U/L 01/08/2024 6:31 AM CDT [facility] ALT (SGPT) 22 <=55 U/L 01/08/2024 6:31 AM CDT [facility] Bilirubin, Total 0.3 0.2 - 1.2 mg/dL 01/08/2024 6:31 AM CDT [facility] Protein, Total 7.4 6.4 - 8.3 g/dL 01/08/2024 6:31 AM CDT [facility] Albumin 3.7 3.5 - 5.0 g/dL 01/08/2024 6:31 AM CDT [facility] Glucose 210(H) 70 - 100 mg/dL 01/08/2024 6:31 AM CDT [facility] Comment:The given reference range is for the fasting state. Non-fasting reference range for glucose is 70 - 180 mg/dL. GFR, Estimated 01/08/2024 6:31 AM CDT [facility] Comment:Since GFR estimation s are influenced by muscle mass, sex and age, in certain instances, two GFR estimations are provided to assist with clinical interpretation. GFR, Female Estimated >60 >60 mL/min/1.7 3m2 01/08/2024 6:31 AM CDT [facility] GFR, Male Estimated >60 >60 mL/min/1.7 3m2 01/08/2024 6:31 AM CDT [facility] Hours Fasting 0.1 8 - 12 Hours 01/08/2024 6:31 AM CDT [facility] Comment:Lab unable to obtain patient's fasting status at time of specimen collection. Blood Venipuncture / Unknown 01/08/2024 5:34 AM CDT 01/08/2024 6:00 AM CDT Narrative [facility] - 01/08/2024 6:31 AM CDT Kimball reference intervals have been applied. Please see the Lab Test Catalog for sex-specific reference intervals. us Enma Bowling DO LAB_1 Final Result [facility] [address] [place] [address], [facility] [[email or web address]] from Last 3 Months or Most Recently Relevant to Health Maintenance [facility] Advance Directives * Full Code (Latest Code Status on File) Date Activated Date Inactivated Comments 12/25/2023 3:29 PM 01/14/2024 4:21 PM * Full Code Date Activated Date Inactivated Comments 12/11/2023 2:55 PM 12/25/2023 1:16 PM Care Teams Cheese Supervisor Relationship Specialty Start Date End Date Pcp, Pt [place] [address] PCP - General 11/14/23
--- OUTSIDE RECORDS SUMMARY | 2024-09-08 01:42 | XMS_ITS | Patient Health Record ---
Author Organization [facility] Address [facility] [address] Care Team Providers Care Pearl Hand Name Role Phone Cirilo Wade MD Primary Care Provider Graciela vailable Reason For Referral No Information Plan Of Treatment No Information Insurance Providers Payer Name Payer Address Payer Phone Subscriber Number Group Number Insured Name Patient Relationship to Insured Coverage Start Date Coverage End Date [facility] [address] [address] [place] [address] [id number] Jef Silva Natural Child - Insured has Financial Responsibility 1
--- OUTSIDE RECORDS SUMMARY | 2024-09-08 01:42 | XMS_ITS | Clinical Summary ---
Author Organization [employer] [facility] [employer] Address [address] [place] [address] Care Team Providers Care Marine Pipefitter Helper Name Role Phone Communications, [facility] Unavailabl e Mansoor Redmond Unavailable [phone] Eliza Hawk Unavailable [phone] [facility] Primary Care Provider Allergies No known active [...] 09/2021 Assessment & Plan (04/19/2022 9:17 AM CLINICAL BIOCHEMIST): She has had episodes of diabetic ketoacidosis [...] on file Legal Sex Female 5:27 AM CLINICAL BIOCHEMIST Gender Identity Not on file Sexual Orientation [...] Code Status Discussion: Reviewed Preferences Care Teams Marine Pipefitter Helper Relationship Specialty Start Date End Date David Corona MBBS [address] [place] [address] PCP - General Family Practice 11/02/22 Communications, [facility] [address] [place] [phone] 05/09/19 Mansoor Redmond LGSW [address] [place] [address] Checkerer Hand 03/24/19 Eliza Hawk PA [address] [place] [address] Physician Service Rig Operator 10/20/21
--- OUTSIDE RECORDS SUMMARY | 2024-09-08 01:42 | XMS_ITS | Clinical Summary ---
Author Organization [facility] Address [address] [place] [address] Care Team Providers Care Dredge Master Name Role Phone David Corona M.D. Primary Care Provider [phone] Source Comments Patient records contain information from all sites at [facility]. For routine questions regarding patient records, call [phone] during business hours, M-F 8:00 AM - 5:00 PM Central Time. Record requests for emergency care only can be directed to [phone] at any time.[facility] Allergies No known active allergies Medications * [...] Sensor) deviceIndications :Diabetes Mellitus Type 1 Hyperglycemia (HCC),Career Manager Use Of Insulin Active (HCC) 1 each every 10 (ten) days. 9 each 02/26/20 025 Active Lantus Solostar U-100 Insulin 100 unit/mL (3 mL) penIndications:Di abetes Mellitus Type 1 Hyperglycemia (HCC),Career Manager Use Of Insulin Active (HCC) Inject 23 Units under the skin daily. 30 mL 02/26/20 025 Active insulin aspart U-100 (NovoLOG FlexPen) 100 unit/mL (3 mL) penIndications:Di abetes Mellitus Type 1 Hyperglycemia (HCC),Career Manager Use Of Insulin Active (HCC),Diabetes Mellitus Type [...] Secondary Hypertension 04/21/2022 Malnutrition Moderate Protein-Calorie 04/19/2022 Career Manager Use Of Insulin Active 08/24/2021 Underweight 08/24/2021 [...] 09/02/2024 Clinical Communication Department of Family Medicine, [facility], in [place] [address] [place] [address] Yolanda Mobley R.N. Quality (D5) from Last [...] 0.6 oz pur e alcohol) [facility] Utilities Answer Date Recorded In the past 12 months has th e [employer], [employer], oil, or water [employer] threatened to shut off services in your [...] your living situation today? I have a [place] [facility] to live 11/19/2023 Education Answer Date Recorded What is the highest level of school you have completed or the highest degree you have received? 12th grade 11/28/2020 Comments Unknown Sex and Gender Information Value Date Recorded Sex Assigned at Female 07/04/2018 1:38 PM CDT Legal Sex Female 7:44 PM [employer] Gender Identity Nonbinary or Genderqueer 022 10:00 PM CDT Sexual Orientation Something else 04/17/2022 1: 14 PM [employer] Last Filed Vital Signs Vital Sign Reading Time Taken Comments Blood Pressure 122/70 02/26/2024 10:17 AM [facility] Pulse 84 02/26/2024 10:17 AM [facility] Temperature 35.9 C (96.7 F) 11/21/2023 10:41 AM CDT Respiratory Rate 16 11/21/2023 10:4 1 AM CDT Oxygen Saturation 99% 04/22/2022 11: 43 AM [facility] Inhaled Oxygen Concentration - - Weight 51.6 kg (113 lb 12.1 oz) 024 10:17 AM [facility] Height 161.5 cm (5' 3.58) 11/21/2023 1 [...] METABOLIC PANEL, S/P Routine 04/22/2022 7:03 AM [facility] C TRACH AMP RNA Routine 01/28/2014 10:30 AM [facility] from Last 3 Months or Most Recently [...] M.D. LAB BLOOD ADD-ON Final Resul t [facility] [address] [place] [address], [facility] [address] [place] [address] * (ABNORMAL) Hemoglobin A1c (11/21/2023 12:05 PM [...] M.D. LAB BLOOD ADD-ON Final Resul t [facility] [address] [place] [address], [facility] [address] [place] [address] * ThinPrep Screen HPV Reflex (11/21/2023 11:12 [...] ORDERABLES Fi nal Result Performing Organization Address [facility] Co de Phone Number [facility] [address] [place] [address], [place] [facility] [id number] [facility] [address] [place] [phone] * (ABNORMAL) Albumin, Random, Urine (10/02/2022 11:22 AM CDT) Microalbumin 87.0 mg/L 10/02/2022 2:35 PM CDT [facility] Creatinine 139 mg/dL 10/02/2022 2:35 PM CDT [facility] Albumin/Creatinin e Ratio 63(H) <25 mg/g 10/02/2022 2:35 PM CDT [facility] Urine (Urine, Midstream) 10/02/2022 11:22 AM CDT 10/02/2022 1:47 PM CDT us David Corona M.D. LAB URINE ORDERABLES Final R esult Performing Organization Address [facility] Co de Phone Number [facility] [address] [place] [address], [place] [facility] [address] [place] [address] * (ABNORMAL) Basic Metabolic Panel (04/22/2022 7:03 AM [facility]) Potassium, S 4.6 3.6 - 5.2 mmol/L 04/22/2022 8:11 AM [facility] DTL Sodium, S 137 135 - 145 mmol/L 04/22/2022 8:11 AM [facility] DTL Chloride, S 102 98 - 107 mmol/L 04/22/2022 8:11 AM [facility] DTL Bicarbonate, S 26 22 - 29 mmol/L 04/22/2022 8:11 AM [facility] DTL Anion Gap 9 7 - 15 04/22/2022 8:11 AM [facility] BUN (Blood Urea Nitrogen), S 13 6 - 21 mg/dL 04/22/2022 8:11 AM [facility] DTL Creatinine 0.70 0.59 - 1.04 mg/dL 04/22/2022 8:11 AM [facility] DTL Estimated GFR (eGFR) >90 >=60 mL/min/BSA 04/22/2022 8:11 AM [facility] Comment: Estimated GFR calculated using the 2020 CKD_EPI creatinine equation. Calcium, Total, S 8.8 8.6 - 10.0 mg/dL 04/22/2022 8:11 AM [facility] DTL Glucose, S 308(H) 70 - 140 mg/dL 04/22/2022 8:11 AM [facility] DTL Blood (Blood, Venous) 04/22/2022 7:03 AM [facility] 04/22/2022 7:44 AM [facility] Amanda Dolan M.D. LAB BLOOD ADD-ON Final Result [facility] [address] [place] [address], [facility] [address] [place] [address] * HX-C trach Amp RNA (01/28/2014 10:30 AM [facility]) Chlamydia trachomatis amplified RNA Negative POWERCHART 01/28/2014 10:3 0 AM [employer] Aura Mohr M.D. LAB HISTORICAL OR DERS Final Result POWERCHART from Last 3 Months or Most Recently Relevant to Health Maintenance Insurance [facility] [place] [phone] Advance Directives For more information, please contact: [phone] * Full Code (Latest Code Status on File) Date Activated Date Inactivated Comments 04/19/2022 8:01 PM 04/22/2022 2:29 PM Question Answer Comments Full Code: Discussed * Full Code Date Activated Date Inactivated Comments 11/24/2020 5:42 AM 11/26/2020 3:52 PM Question Answer Comments Full Code: Discussed Care Teams Dredge Master Relationship Specialty Start Date End Date David Corona M.D. [address] [place] [address] [place] [phone] PCP - General Family Medicine 04/26/22
== END 2024-09-05 09:14 | disposition home or self-care (01) ==
PROVIDERS: Visit Provider Internal Medicine
DX: R56.9 Unspecified convulsions (principal); E11.649 Type 2 diabetes mellitus with hypoglycemia without coma
CPT/HCPCS: A0998

== ENCOUNTER 2024-09-25 16:27 | Outpatient (CLI) | payer BC, SELFPAY | END 2024-09-25 16:28 | disposition home or self-care (01) | PROVIDERS: Visit Provider Emergency Medicine Emergency Medical Services | DX: E10.649 Type 1 diabetes mellitus with hypoglycemia without coma (principal) | CPT/HCPCS: A0425; A0427 ==